=== PATIENT | male | born 1980 | race Caucasian/White ===

== ENCOUNTER 2023-10-01 23:45 | Emergency (ER) | payer SELFPAY ==
--- NOTE | 2023-10-02 00:06 | EDPHYS ---
Physician Documentation [facility] Name: Jeffrey Riley Age: 43 yrs Sex: Male : 1980 Arrival Date: 10/01/2023 Time: 23:45 Bed 12 Private MD: ED Physician Curtis Jennings HPI: 10/02 00:40 This 43 yrs old Male presents to ER via Unassigned with complaints of Allergic Reaction.kb 00:40 Patient is a 43-year-old male who presents for diffuse hives that started 3 days ago. kb States it has been continuing to spread. Reports itching. Denies fever.. Historical: - Allergies: 00:05 No Known Allergies; pf1 - PMHx: 00:05 None; pf1 - PSHx: 00:05 None; pf1 - Immunization history:: Adult Immunizations not up to date, Client reports having NOT received the Covid vaccine. Last tetanus immunization: > 10 years ago Flu vaccine is not up to date. - Social history:: Smoking status: Patient denies any tobacco usage or history of. Patient/guardian denies using alcohol, street drugs. ROS: 00:39 Constitutional: Negative for fever, chills, and weight loss, kb 00:39 Skin: Positive for rash, diffusely, 00:39 All other systems are negative, Exam: 00:39 Constitutional: This is a well developed, well nourished patient who is awake, alert, kb and in no acute distress. Head/Face: Normocephalic, atraumatic. ENT: Moist Mucous membranes Cardiovascular: Regular rate Respiratory: Respirations even and unlabored. No increased work of breathing. Talking in full sentences MS/ Extremity: Pulses equal, no cyanosis. Neurovascular intact. Full, normal range of motion. Neuro: Awake and alert, GCS 15, oriented to person, place, time, and situation. Moves all extremities. Normal gait. 00:39 Skin: consistent with urticaria, and is diffusely located, Vital Signs: 00:02 BP 131 / 84; Pulse 95; Resp 16; Temp 98.3; Pulse Ox 97% on R/A; Weight 126.1 kg; Height pf1 5 ft. 10 in. ; Pain 0/10; 00:02 Body Mass Index 39.89 (126.10 kg, 177.8 cm) pf1 00:02 Pain Scale: Adult pf1 MDM: 10/01 23:57 Patient medically screened. kb 10/02 00:40 Differential diagnosis: anaphylaxis, urticaria, cellulitis. Data reviewed: vital signs, kb nurses notes. Counseling: I had a detailed discussion with the patient and/or guardian regarding the historical points, exam findings, and any diagnostic results supporting the discharge/admit diagnosis, the need for outpatient follow up, a ultrasound manager, to return to the emergency department if symptoms worsen or persist or if there are any questions or concerns that arise at home. Administered Medications: 00:15 Drug: Dexamethasone IM 10 mg IM once Route: IM; Site: left ventrogluteal; pf1 00:29 Follow up: Response: No adverse reaction pf1 00:15 Drug: Famotidine PO 20 mg PO once Route: PO; pf1 00:29 Follow up: Response: No adverse reaction pf1 Disposition: 02:28 Co-signature as Attending Physician, Curtis Jennings MD I reviewed the patient's care rn provided by the Advanced Practice Provider and agree with the diagnosis and treatment plan. Disposition Summary: 10/02/23 00:05 Discharge Ordered Notes: Location: Home kb Condition: Stable kb Diagnosis - Urticaria, unspecified kb Followup: kb - With: Emergency Department - When: As needed - Reason: Worsening of condition Followup: kb - With: Private Physician - When: 2 - 3 days - Reason: Recheck today's complaints, Continuance of care, Re-evaluation by your physician Discharge Instructions: - Discharge Summary Sheet kb - Hives, [id number] kb Forms: - Medication Reconciliation Form kb - Thank You Letter kb - Antibiotic Education kb - Prescription Opioid Use kb - Patient Portal Instructions kb - Leadership Thank You Letter kb Prescriptions: - Cephalexin 500 mg Oral Capsule - take 1 capsule ORAL route every 8 hours for 10 days; 30 capsule; Refills: 0, kb Product Selection Permitted - Pepcid 20 mg Oral Tablet - take 1 tablet ORAL route every 12 hours for 5 days; 10 tablet; Refills: 0, kb Product Selection Permitted - Prednisone 20 mg Oral Tablet - take 2 tablets ORAL route once daily for 5 days; 10 tablet; Refills: 0, Product kb Selection Permitted Signatures: Esthela Tony, STACIEC BHAVANI-Ckb Jennings, Curtis, MD MD rn Davis, Liliane, RN RN pf1
[2023-10-02] MEDS ORDERED: dexAMETHasone 10 MG/ML VIAL ONE (00:25)
[2023-10-02] MEDS ORDERED: FAMOTIDINE 20 MG TAB ONE (00:25)
--- NOTE | 2023-10-02 00:49 | ER ---
Nurse's Notes [facility] Name: Jeffrey Riley Age: 43 yrs Sex: Male : 1980 Arrival Date: 10/01/2023 Time: 23:45 Bed 12 Private MD: Diagnosis: Urticaria, unspecified Presentation: 10/02 00:02 Chief complaint: Patient states: generalized hives with itching,onset 3 days. Patient pf1 denies any difficulty breathing. 00:02 Coronavirus screen: Vaccine status: Patient reports being unvaccinated. Client denies pf1 travel out of the [place] in the last 14 days. At this time, the client does not indicate any symptoms associated with coronavirus-19. Ebola Screen: Patient negative for fever greater than or equal to 101.5 degrees Fahrenheit, and additional compatible Ebola Virus Disease symptoms. Onset: The symptoms/episode began/occurred gradually, 3 day(s) ago. Anaphylaxis evaluation, no signs or symptoms of anaphylaxis were noted. Initial Sepsis Screen: Does the patient meet any 2 criteria? HR > 90 bpm. No. Patient's initial sepsis screen is negative. Does the patient have a suspected source of infection? No. Patient's initial sepsis screen is negative. Risk Assessment: Do you want to hurt yourself or someone else? Patient reports no desire to harm self or others. 00:02 Method Of Arrival: Ambulatory pf1 00:02 Acuity: EMERITA 5 pf1 Historical: - Allergies: 00:05 No Known Allergies; pf1 - PMHx: 00:05 None; pf1 - PSHx: 00:05 None; pf1 - Immunization history:: Adult Immunizations not up to date, Client reports having NOT received the Covid vaccine. Last tetanus immunization: > 10 years ago Flu vaccine is not up to date. - Social history:: Smoking status: Patient denies any tobacco usage or history of. Patient/guardian denies using alcohol, street drugs. Screenin:05 [facility] ED Fall Risk Assessment (Adult) History of falling in the last 3 months, pf1 including since admission No falls in past 3 months (0 pts) Confusion or Disorientation No (0 pts) Intoxicated or Sedated No (0 pts) Impaired Gait No (0 pts) Mobility Assist Device Used No (0 pt) Altered Elimination No (0 pt) Score/Fall Risk Level 0 - 2 = Low Risk Oriented to surroundings, Maintained a safe environment, Educated pt \T\ family on fall prevention, incl call for assistance when getting out of bed, Assessed \T\ reinforced patient's understanding of fall precautions, Provided non-skid footwear, Hourly rounding (assess needs \T\ fall precautionary measures) done, Used ambulatory aids as needed (educated on \T\ assisted with), Used gait belt as appropriate. 00:05 Abuse screen: Denies threats or abuse. Nutritional screening: No deficits noted. pf1 Tuberculosis screening: No symptoms or risk factors identified. Assessment: 00:05 General: Appears in no apparent distress. comfortable, well developed, Behavior is pf1 calm, cooperative, appropriate for age, quiet. 00:05 Pain: Denies pain. Neuro: No deficits noted. Level of Consciousness is awake, alert, pf1 obeys commands, Oriented to person, place, time, situation. Cardiovascular: No deficits noted. Capillary refill < 3 seconds Patient's skin is warm and dry. Respiratory: No deficits noted. Airway is patent Respiratory effort is even, unlabored, Respiratory pattern is regular, symmetrical, Breath sounds are clear bilaterally. GI: No deficits noted. No signs and/or symptoms were reported involving the gastrointestinal system. : No deficits noted. No signs and/or symptoms were reported regarding the genitourinary system. EENT: No deficits noted. No signs and/or symptoms were reported regarding the EENT system. Derm: Rash noted that is itchy, papular, red, raised, hives Reports generalized hives with itching. Vital Signs: 00:02 BP 131 / 84; Pulse 95; Resp 16; Temp 98.3; Pulse Ox 97% on R/A; Weight 126.1 kg; Height pf1 5 ft. 10 in. ; Pain 0/10; 00:02 Body Mass Index 39.89 (126.10 kg, 177.8 cm) pf1 00:02 Pain Scale: Adult pf1 ED Course: 10/01 23:50 Patient arrived in ED. gm2 23:57 Esthela [facility]C [facility] kb 23:57 Curtis Jennings MD is Attending Physician. kb 10/02 00:05 Patient has correct armband on for positive identification. Bed in low position. Call pf1 light in reach. 00:05 Arm band placed on right wrist. pf1 00:05 No provider procedures requiring assistance completed. Patient did not have IV access pf1 during this emergency room visit. 06:44 Triage completed. pf1 Administered Medications: 00:15 Drug: Dexamethasone IM 10 mg IM once Route: IM; Site: left ventrogluteal; pf1 00:29 Follow up: Response: No adverse reaction pf1 00:15 Drug: Famotidine PO 20 mg PO once Route: PO; pf1 00:29 Follow up: Response: No adverse reaction pf1 Medication: 00:05 VIS not applicable for this client. pf1 Outcome: 00:05 Discharge ordered by . kb 00:47 Discharged to home ambulatory, pf1 00:47 Condition: stable 00:47 Discharge instructions given to patient, Instructed on discharge instructions, follow up and referral plans. Demonstrated understanding of instructions, follow-up care, medications, Prescriptions given X 3, 00:48 Patient left the ED. pf1 Signatures: Esthela Tony FNP-C FNP-Liliane Walter RN RN pf1 Leigh Florentino 2
== END 2023-10-02 00:48 | disposition home or self-care (01) ==
LOC: ER 23:45
DX: L50.9 Urticaria, unspecified (principal)
CPT/HCPCS: 96372; 99284; J1100

== ENCOUNTER 2023-10-04 22:38 | Emergency (ER) | payer SELFPAY ==
--- OUTSIDE RECORDS SUMMARY | 2023-10-04 22:42 | XMS REPORT | Continuity of Care Document ---
:1980 Author Organization [facility] t Address [address] [place] [address] Care Team Providers Name Role Phone Annabel Attending Clinician Unavailable Makenzie Attending Clinician Unavailable Rosa M Ann Attending Clinician [phone] Annabel Admitting Clinician Unavailable Makenzie Admitting Clinician Unavailable Payers Payer Name Policy Type Policy Number Effective Date Expiration Date S tamiko AETNA [id number] 2019 00:00:00 [place] [id number] 2022 00[place]00 [place] Problems This patient has no known problems. Allergies, Adverse Reactions, Alerts This patient has no known allergies or adverse reactions. Social History Smoking Status Start Date Stop Date Source Never Smoker Ban [facility] Medications Ordered Filled Start Stop Current Ordering Indication Dosage Frequency Signature Comments Components Source Medication Medication Date Date Medication? Clinician (SIG) Name Name azithromyci azithromyci No azithromyc Ban n 250 mg n 250 mg in 250 mg Or thope tablet TAKE tablet TAKE tablet dic 2 TABLETS 2 TABLETS TAKE 2 Spo rts BY MOUTH BY MOUTH TABLETS BY M edicin TODAY, THEN TODAY, THEN MOUTH e TAKE 1 TAKE 1 TODAY, TABLET TABLET THEN TAKE DAILY FOR 4 DAILY FOR 4 1 TABLET DAYS DAYS DAILY FOR 4 DAYS ipratropium ipratropium No ipratropiu Ban bromide 42 bromide 42 m bromide [facility] mcg (0.06 mcg (0.06 42 mcg dic %) nasal %) nasal (0.06 %) Spo rts spray SPRAY spray SPRAY nasal Medicin 1 SPRAY 1 SPRAY spray e INTRANASALL INTRANASALL SPRAY 1 Y 3 TIMES A Y 3 TIMES A SPRAY DAY DAY INTRANASAL LY 3 TIMES A DAY meloxicam meloxicam No meloxicam Ban 15 mg 15 mg 15 mg [facility] tablet TAKE tablet TAKE tablet dic 1 TABLET BY 1 TABLET BY TAKE 1 Sports MOUTH DAILY MOUTH DAILY TABLET BY Medicin NEEDED NEEDED MOUTH e FOR MUSCLE FOR MUSCLE DAILY PAIN. PAIN. NEEDED FOR MUSCLE PAIN. methocarbam methocarbam No methocarba Ban ol 750 mg ol 750 mg mol 750 mg [facility] tablet TAKE tablet TAKE tablet dic 1 TABLET BY 1 TABLET BY TAKE 1 Sports MOUTH EVERY MOUTH EVERY TABLET BY Medicin 8 HOURS 8 HOURS MOUTH e NEEDED NEEDED EVERY 8 HOURS NEEDED methylpredn methylpredn No methylpred Ban isolone 4 isolone 4 nisolone 4 Orthope mg tablets mg tablets mg tablets dic in a dose in a dose in a dose Sports pack TAKE 6 pack TAKE 6 pack TAKE Medicin TABLETS ON TABLETS ON 6 TABLETS e DAY 1 DAY 1 ON DAY 1 DIRECTED ON DIRECTED ON PACKAGE AND PACKAGE AND DIRECTED DECREASE BY DECREASE BY ON PACKAGE 1 TAB EACH 1 TAB EACH AND DAY FOR A DAY FOR A DECREASE TOTAL OF 6 TOTAL OF 6 BY 1 TAB DAYS DAYS EACH DAY FOR A TOTAL OF 6 DAYS valacyclovi valacyclovi No valacyclov Ban r 1 gram r 1 gram ir 1 gram Or thope tablet TAKE tablet TAKE tablet dic 2 TABLETS 2 TABLETS TAKE 2 Spo rts BY MOUTH BY MOUTH TABLETS BY M edicin EVERY 12 EVERY 12 MOUTH e HOURS HOURS EVERY 12 HOURS zolpidem 5 zolpidem 5 No zolpidem 5 Ban mg tablet mg tablet mg tablet [facility] TAKE 1 TAKE 1 TAKE 1 dic TABLET BY TABLET BY TABLET BY Sports MOUTH MOUTH MOUTH Medicin NIGHTLY NIGHTLY NIGHTLY e NEEDED FOR NEEDED FOR NEEDED FOR SLEEP. SLEEP. SLEEP. INDICATIONS INDICATIONS INDICATION : : S: DIFFICULTY DIFFICULTY DIFFICULTY FALLING FALLING FALLING ASLEEP ASLEEP ASLEEP albuterol albuterol No albuterol Ban sulfate HFA sulfate HFA sulfate Orth[facility] 90 90 HFA 90 dic mcg/actuati mcg/actuati mcg/actuat Sports on aerosol on aerosol ion Med icin inhaler inhaler aerosol e INHALE 2 INHALE 2 inhaler PUFFS INTO PUFFS INTO INHALE 2 THE LUNGS THE LUNGS PUFFS INTO EVERY 4 EVERY 4 THE LUNGS HOURS HOURS EVERY 4 NEEDED FOR NEEDED FOR HOURS WHEEZE WHEEZE NEEDED FOR WHEEZE azithromyci azithromyci No azithromyc Ban n 250 mg n 250 mg in 250 mg Or thope tablet TAKE tablet TAKE tablet dic 2 TABLETS 2 TABLETS TAKE 2 Spo rts BY MOUTH BY MOUTH TABLETS BY Kevon cote TODAY, THEN TODAY, THEN MOUTH e TAKE 1 TAKE 1 TODAY, TABLET TABLET THEN TAKE DAILY FOR 4 DAILY FOR 4 1 TABLET DAYS DAYS DAILY FOR 4 DAYS ipratropium ipratropium No ipratropiu Ban bromide 42 bromide 42 m bromide [facility] mcg (0.06 mcg (0.06 42 mcg dic %) nasal %) nasal (0.06 %) Spo rts spray SPRAY spray SPRAY nasal Medicin 1 SPRAY 1 SPRAY spray e INTRANASALL INTRANASALL SPRAY 1 Y 3 TIMES A Y 3 TIMES A SPRAY DAY DAY INTRANASAL LY 3 TIMES A DAY meloxicam meloxicam No meloxicam Ban 15 mg 15 mg 15 mg [facility] tablet TAKE tablet TAKE tablet dic 1 TABLET BY 1 TABLET BY TAKE 1 Sports MOUTH DAILY MOUTH DAILY TABLET BY Medicin NEEDED NEEDED MOUTH e FOR MUSCLE FOR MUSCLE DAILY PAIN. PAIN. NEEDED FOR MUSCLE PAIN. methocarbam methocarbam No methocarba Ban ol 750 mg ol 750 mg mol 750 mg [facility] tablet TAKE tablet TAKE tablet dic 1 TABLET BY 1 TABLET BY TAKE 1 Sports MOUTH EVERY MOUTH EVERY TABLET BY Medicin 8 HOURS 8 HOURS MOUTH e NEEDED NEEDED EVERY 8 HOURS NEEDED methylpredn methylpredn No methylpred Ban isolone 4 isolone 4 nisolone 4 [facility] mg tablets mg tablets mg tablets dic in a dose in a dose in a dose Sports pack TAKE 6 pack TAKE 6 pack TAKE Medicin TABLETS ON TABLETS ON 6 TABLETS e DAY 1 DAY 1 ON DAY 1 DIRECTED ON DIRECTED ON PACKAGE AND PACKAGE AND DIRECTED DECREASE BY DECREASE BY ON PACKAGE 1 TAB EACH 1 TAB EACH AND DAY FOR A DAY FOR A DECREASE TOTAL OF 6 TOTAL OF 6 BY 1 TAB DAYS DAYS EACH DAY FOR A TOTAL OF 6 DAYS valacyclovi valacyclovi No valacyclov Ban r 1 gram r 1 gram ir 1 gram Or thope tablet TAKE tablet TAKE tablet dic 2 TABLETS 2 TABLETS TAKE 2 Spo rts BY MOUTH BY MOUTH TABLETS BY Kevon cote EVERY 12 EVERY 12 MOUTH e HOURS HOURS EVERY 12 HOURS zolpidem 5 zolpidem 5 No zolpidem 5 Ban mg tablet mg tablet mg tablet [facility] TAKE 1 TAKE 1 TAKE 1 dic TABLET BY TABLET BY TABLET BY Sports MOUTH MOUTH MOUTH Medicin NIGHTLY NIGHTLY NIGHTLY e NEEDED FOR NEEDED FOR NEEDED FOR SLEEP. SLEEP. SLEEP. INDICATIONS INDICATIONS INDICATION : : S: DIFFICULTY DIFFICULTY DIFFICULTY FALLING FALLING FALLING ASLEEP ASLEEP ASLEEP albuterol albuterol No albuterol Ban sulfate HFA sulfate HFA sulfate [facility] 90 90 HFA 90 dic mcg/actuati mcg/actuati mcg/actuat Sports on aerosol on aerosol ion Med icin inhaler inhaler aerosol e INHALE 2 INHALE 2 inhaler PUFFS INTO PUFFS INTO INHALE 2 THE LUNGS THE LUNGS PUFFS INTO EVERY 4 EVERY 4 THE LUNGS HOURS HOURS EVERY 4 NEEDED FOR NEEDED FOR HOURS WHEEZE WHEEZE NEEDED FOR WHEEZE azithromyci azithromyci No azithromyc Ban n 250 mg n 250 mg in 250 mg Or thope tablet TAKE tablet TAKE tablet dic 2 TABLETS 2 TABLETS TAKE 2 Spo rts BY MOUTH BY MOUTH TABLETS BY M edicin TODAY, THEN TODAY, THEN MOUTH e TAKE 1 TAKE 1 TODAY, TABLET TABLET THEN TAKE DAILY FOR 4 DAILY FOR 4 1 TABLET DAYS DAYS DAILY FOR 4 DAYS ciprofloxac ciprofloxac No ciprofloxa Ban in 500 mg in 500 mg abundio 500 mg [facility] tablet TAKE tablet TAKE tablet dic 1 TABLET BY 1 TABLET BY TAKE 1 Sports MOUTH TWICE MOUTH TWICE TABLET BY Medicin A DAY FOR 5 A DAY FOR 5 MOUTH e DAYS DAYS TWICE A DAY FOR 5 DAYS gabapentin gabapentin No gabapentin Ban 300 mg 300 mg 300 mg [facility] capsule capsule capsule dic TAKE 1 TO 2 TAKE 1 TO 2 TAKE 1 TO Sports CAPSULES BY CAPSULES BY 2 CAPSULES Medicin MOUTH EVERY MOUTH EVERY BY MOUTH e NIGHT AT NIGHT AT EVERY BEDTIME BEDTIME NIGHT AT BEDTIME ipratropium ipratropium No ipratropiu Ban bromide 42 bromide 42 m bromide [facility] mcg (0.06 mcg (0.06 42 mcg dic %) nasal %) nasal (0.06 %) Spo rts spray SPRAY spray SPRAY nasal Medicin 1 SPRAY 1 SPRAY spray e INTRANASALL INTRANASALL SPRAY 1 Y 3 TIMES A Y 3 TIMES A SPRAY DAY DAY INTRANASAL LY 3 TIMES A DAY meloxicam meloxicam No meloxicam Ban 15 mg 15 mg 15 mg [facility] tablet TAKE tablet TAKE tablet dic 1 TABLET BY 1 TABLET BY TAKE 1 Sports MOUTH DAILY MOUTH DAILY TABLET BY Medicin NEEDED NEEDED MOUTH e FOR MUSCLE FOR MUSCLE DAILY PAIN. PAIN. NEEDED FOR MUSCLE PAIN. methocarbam methocarbam No methocarba Ban ol 750 mg ol 750 mg mol 750 mg [facility] tablet TAKE tablet TAKE tablet dic 1 TABLET BY 1 TABLET BY TAKE 1 Sports MOUTH EVERY MOUTH EVERY TABLET BY Medicin 8 HOURS 8 HOURS MOUTH e NEEDED FOR NEEDED FOR EVERY 8 MUSCLE MUSCLE HOURS SPASMS SPASMS NEEDED FOR MUSCLE SPASMS methylpredn methylpredn No methylpred Ban isolone 4 isolone 4 nisolone 4 [facility] mg tablets mg tablets mg tablets dic in a dose in a dose in a dose Sports pack TAKE 6 pack TAKE 6 pack TAKE Medicin TABLETS ON TABLETS ON 6 TABLETS e DAY 1 DAY 1 ON DAY 1 DIRECTED ON DIRECTED ON PACKAGE AND PACKAGE AND DIRECTED DECREASE BY DECREASE BY ON PACKAGE 1 TAB EACH 1 TAB EACH AND DAY FOR A DAY FOR A DECREASE TOTAL OF 6 TOTAL OF 6 BY 1 TAB DAYS DAYS EACH DAY FOR A TOTAL OF 6 DAYS oxycodone-a oxycodone-a No oxycodone- Ban cetaminophe cetaminophe acetaminop [facility] n 5 mg-325 n 5 mg-325 hen 5 di c mg tablet mg tablet mg-325 mg Sports Take 1 Take 1 tablet Medicin tablet tablet Take 1 e every 6 every 6 tablet hours by hours by every 6 oral route. oral route. hours by oral route. valacyclovi valacyclovi No valacyclov Ban r 1 gram r 1 gram ir 1 gram Or thope tablet TAKE tablet TAKE tablet dic 2 TABLETS 2 TABLETS TAKE 2 Spo rts BY MOUTH BY MOUTH TABLETS BY M edicin EVERY 12 EVERY 12 MOUTH e HOURS HOURS EVERY 12 HOURS zolpidem 5 zolpidem 5 No zolpidem 5 Ban mg tablet mg tablet mg tablet [facility] TAKE 1 TAKE 1 TAKE 1 dic TABLET BY TABLET BY TABLET BY Sports MOUTH MOUTH MOUTH Medicin NIGHTLY NIGHTLY NIGHTLY e NEEDED FOR NEEDED FOR NEEDED FOR SLEEP. SLEEP. SLEEP. INDICATIONS INDICATIONS INDICATION : : S: DIFFICULTY DIFFICULTY DIFFICULTY FALLING FALLING FALLING ASLEEP ASLEEP ASLEEP albuterol albuterol No albuterol Ban sulfate HFA sulfate HFA sulfate [facility] 90 90 HFA 90 dic mcg/actuati mcg/actuati mcg/actuat Sports on aerosol on aerosol ion Med icin inhaler inhaler aerosol e INHALE 2 INHALE 2 inhaler PUFFS INTO PUFFS INTO INHALE 2 THE LUNGS THE LUNGS PUFFS INTO EVERY 4 EVERY 4 THE LUNGS HOURS HOURS EVERY 4 NEEDED FOR NEEDED FOR HOURS WHEEZE WHEEZE NEEDED FOR WHEEZE amoxicillin amoxicillin No amoxicilli Ban 875 mg 875 mg n 875 mg [facility] tablet TAKE tablet TAKE tablet dic 1 TAB(S) 1 TAB(S) TAKE 1 Sport s ORALLY 2 ORALLY 2 TAB(S) Medic in TIMES A DAY TIMES A DAY ORALLY 2 e TREAT FOR TREAT FOR TIMES A 10 DAYS 10 DAYS DAY TREAT FOR 10 DAYS azithromyci azithromyci No azithromyc Ban n 250 mg n 250 mg in 250 mg Or thope tablet TAKE tablet TAKE tablet dic 2 TABLETS 2 TABLETS TAKE 2 Spo rts BY MOUTH BY MOUTH TABLETS BY M edicin TODAY, THEN TODAY, THEN MOUTH e TAKE 1 TAKE 1 TODAY, TABLET TABLET THEN TAKE DAILY FOR 4 DAILY FOR 4 1 TABLET DAYS DAYS DAILY FOR 4 DAYS ciprofloxac ciprofloxac No ciprofloxa Ban in 500 mg in 500 mg abundio 500 mg [facility] tablet TAKE tablet TAKE tablet dic 1 TABLET BY 1 TABLET BY TAKE 1 Sports MOUTH TWICE MOUTH TWICE TABLET BY Medicin A DAY FOR 5 A DAY FOR 5 MOUTH e DAYS DAYS TWICE A DAY FOR 5 DAYS gabapentin gabapentin No gabapentin Ban 300 mg 300 mg 300 mg [facility] capsule capsule capsule dic TAKE 1 TO 2 TAKE 1 TO 2 TAKE 1 TO Sports CAPSULES BY CAPSULES BY 2 CAPSULES Medicin MOUTH EVERY MOUTH EVERY BY MOUTH e NIGHT AT NIGHT AT EVERY BEDTIME BEDTIME NIGHT AT BEDTIME ipratropium ipratropium No ipratropiu Ban bromide 42 bromide 42 m bromide [facility] mcg (0.06 mcg (0.06 42 mcg dic %) nasal %) nasal (0.06 %) Spo rts spray SPRAY spray SPRAY nasal Medicin 1 SPRAY 1 SPRAY spray e INTRANASALL INTRANASALL SPRAY 1 Y 3 TIMES A Y 3 TIMES A SPRAY DAY DAY INTRANASAL LY 3 TIMES A DAY meloxicam meloxicam No meloxicam Ban 15 mg 15 mg 15 mg [facility] tablet TAKE tablet TAKE tablet dic 1 TABLET BY 1 TABLET BY TAKE 1 Sports MOUTH DAILY MOUTH DAILY TABLET BY Medicin NEEDED NEEDED MOUTH e FOR MUSCLE FOR MUSCLE DAILY PAIN. PAIN. NEEDED FOR MUSCLE PAIN. methocarbam methocarbam No methocarba Ban ol 750 mg ol 750 mg mol 750 mg [facility] tablet TAKE tablet TAKE tablet dic 1 TABLET BY 1 TABLET BY TAKE 1 Sports MOUTH EVERY MOUTH EVERY TABLET BY Medicin 8 HOURS 8 HOURS MOUTH e NEEDED FOR NEEDED FOR EVERY 8 MUSCLE MUSCLE HOURS SPASMS SPASMS NEEDED FOR MUSCLE SPASMS methylpredn methylpredn No methylpred Ban isolone 4 isolone 4 nisolone 4 [facility] mg tablets mg tablets mg tablets dic in a dose in a dose in a dose Sports pack TAKE 6 pack TAKE 6 pack TAKE Medicin TABLETS ON TABLETS ON 6 TABLETS e DAY 1 DAY 1 ON DAY 1 DIRECTED ON DIRECTED ON PACKAGE AND PACKAGE AND DIRECTED DECREASE BY DECREASE BY ON PACKAGE 1 TAB EACH 1 TAB EACH AND DAY FOR A DAY FOR A DECREASE TOTAL OF 6 TOTAL OF 6 BY 1 TAB DAYS DAYS EACH DAY FOR A TOTAL OF 6 DAYS oxycodone-a oxycodone-a No oxycodone- Ban cetaminophe cetaminophe acetaminop [facility] n 5 mg-325 n 5 mg-325 hen 5 di c mg tablet mg tablet mg-325 mg Sports Take 1 Take 1 tablet Medicin tablet tablet Take 1 e every 6 every 6 tablet hours by hours by every 6 oral route. oral route. hours by oral route. valacyclovi valacyclovi No valacyclov Ban r 1 gram r 1 gram ir 1 gram Or thope tablet TAKE tablet TAKE tablet dic 2 TABLETS 2 TABLETS TAKE 2 Spo rts BY MOUTH BY MOUTH TABLETS BY M edicin EVERY 12 EVERY 12 MOUTH e HOURS HOURS EVERY 12 HOURS zolpidem 5 zolpidem 5 No zolpidem 5 Ban mg tablet mg tablet mg tablet [facility] TAKE 1 TAKE 1 TAKE 1 dic TABLET BY TABLET BY TABLET BY Sports MOUTH MOUTH MOUTH Medicin NIGHTLY NIGHTLY NIGHTLY e NEEDED FOR NEEDED FOR NEEDED FOR SLEEP. SLEEP. SLEEP. INDICATIONS INDICATIONS INDICATION : : S: DIFFICULTY DIFFICULTY DIFFICULTY FALLING FALLING FALLING ASLEEP ASLEEP ASLEEP albuterol albuterol No albuterol Ban sulfate HFA sulfate HFA sulfate [facility] 90 90 HFA 90 dic mcg/actuati mcg/actuati mcg/actuat Sports on aerosol on aerosol ion Med icin inhaler inhaler aerosol e INHALE 2 INHALE 2 inhaler PUFFS INTO PUFFS INTO INHALE 2 THE LUNGS THE LUNGS PUFFS INTO EVERY 4 EVERY 4 THE LUNGS HOURS HOURS EVERY 4 NEEDED FOR NEEDED FOR HOURS WHEEZE WHEEZE NEEDED FOR WHEEZE amoxicillin amoxicillin No amoxicilli Ban 875 mg 875 mg n 875 mg [facility] tablet TAKE tablet TAKE tablet dic 1 TAB(S) 1 TAB(S) TAKE 1 Sport s ORALLY 2 ORALLY 2 TAB(S) Medic in TIMES A DAY TIMES A DAY ORALLY 2 e TREAT FOR TREAT FOR TIMES A 10 DAYS 10 DAYS DAY TREAT FOR 10 DAYS azithromyci azithromyci No azithromyc Ban n 250 mg n 250 mg in 250 mg Or thope tablet TAKE tablet TAKE tablet dic 2 TABLETS 2 TABLETS TAKE 2 Spo rts BY MOUTH BY MOUTH TABLETS BY Kevon cote TODAY, THEN TODAY, THEN MOUTH e TAKE 1 TAKE 1 TODAY, TABLET TABLET THEN TAKE DAILY FOR 4 DAILY FOR 4 1 TABLET DAYS DAYS DAILY FOR 4 DAYS ciprofloxac ciprofloxac No ciprofloxa Ban in 500 mg in 500 mg abundio 500 mg [facility] tablet TAKE tablet TAKE tablet dic 1 TABLET BY 1 TABLET BY TAKE 1 Sports MOUTH TWICE MOUTH TWICE TABLET BY Medicin A DAY FOR 5 A DAY FOR 5 MOUTH e DAYS DAYS TWICE A DAY FOR 5 DAYS gabapentin gabapentin No gabapentin Ban 300 mg 300 mg 300 mg [facility] capsule capsule capsule dic TAKE 1 TO 2 TAKE 1 TO 2 TAKE 1 TO Sports CAPSULES BY CAPSULES BY 2 CAPSULES Medicin MOUTH EVERY MOUTH EVERY BY MOUTH e NIGHT AT NIGHT AT EVERY BEDTIME BEDTIME NIGHT AT BEDTIME ipratropium ipratropium No ipratropiu Ban bromide 42 bromide 42 m bromide [facility] mcg (0.06 mcg (0.06 42 mcg dic %) nasal %) nasal (0.06 %) Spo rts spray SPRAY spray SPRAY nasal Medicin 1 SPRAY 1 SPRAY spray e INTRANASALL INTRANASALL SPRAY 1 Y 3 TIMES A Y 3 TIMES A SPRAY DAY DAY INTRANASAL LY 3 TIMES A DAY meloxicam meloxicam No meloxicam Ban 15 mg 15 mg 15 mg [facility] tablet TAKE tablet TAKE tablet dic 1 TABLET BY 1 TABLET BY TAKE 1 Sports MOUTH DAILY MOUTH DAILY TABLET BY Medicin NEEDED NEEDED MOUTH e FOR MUSCLE FOR MUSCLE DAILY PAIN. PAIN. NEEDED FOR MUSCLE PAIN. methocarbam methocarbam No methocarba Ban ol 750 mg ol 750 mg mol 750 mg [facility] tablet TAKE tablet TAKE tablet dic 1 TABLET BY 1 TABLET BY TAKE 1 Sports MOUTH EVERY MOUTH EVERY TABLET BY Medicin 8 HOURS 8 HOURS MOUTH e NEEDED FOR NEEDED FOR EVERY 8 MUSCLE MUSCLE HOURS SPASMS SPASMS NEEDED FOR MUSCLE SPASMS methylpredn methylpredn No methylpred Ban isolone 4 isolone 4 nisolone 4 [facility] mg tablets mg tablets mg tablets dic in a dose in a dose in a dose Sports pack TAKE 6 pack TAKE 6 pack TAKE Medicin TABLETS ON TABLETS ON 6 TABLETS e DAY 1 DAY 1 ON DAY 1 DIRECTED ON DIRECTED ON PACKAGE AND PACKAGE AND DIRECTED DECREASE BY DECREASE BY ON PACKAGE 1 TAB EACH 1 TAB EACH AND DAY FOR A DAY FOR A DECREASE TOTAL OF 6 TOTAL OF 6 BY 1 TAB DAYS DAYS EACH DAY FOR A TOTAL OF 6 DAYS oxycodone-a oxycodone-a No oxycodone- Ban cetaminophe cetaminophe acetaminop [facility] n 5 mg-325 n 5 mg-325 hen 5 di c mg tablet mg tablet mg-325 mg Sports Take 1 Take 1 tablet Medicin tablet tablet Take 1 e every 6 every 6 tablet hours by hours by every 6 oral route. oral route. hours by oral route. valacyclovi valacyclovi No valacyclov Ban r 1 gram r 1 gram ir 1 gram Or thope tablet TAKE tablet TAKE tablet dic 2 TABLETS 2 TABLETS TAKE 2 Spo rts BY MOUTH BY MOUTH TABLETS BY M edicin EVERY 12 EVERY 12 MOUTH e HOURS HOURS EVERY 12 HOURS zolpidem 5 zolpidem 5 No zolpidem 5 Ban mg tablet mg tablet mg tablet [facility] TAKE 1 TAKE 1 TAKE 1 dic TABLET BY TABLET BY TABLET BY Sports MOUTH MOUTH MOUTH Medicin NIGHTLY NIGHTLY NIGHTLY e NEEDED FOR NEEDED FOR NEEDED FOR SLEEP. SLEEP. SLEEP. INDICATIONS INDICATIONS INDICATION : : S: DIFFICULTY DIFFICULTY DIFFICULTY FALLING FALLING FALLING ASLEEP ASLEEP ASLEEP albuterol albuterol No albuterol Ban sulfate HFA sulfate HFA sulfate [facility] 90 90 HFA 90 dic mcg/actuati mcg/actuati mcg/actuat Sports on aerosol on aerosol ion Med icin inhaler inhaler aerosol e INHALE 2 INHALE 2 inhaler PUFFS INTO PUFFS INTO INHALE 2 THE LUNGS THE LUNGS PUFFS INTO EVERY 4 EVERY 4 THE LUNGS HOURS HOURS EVERY 4 NEEDED FOR NEEDED FOR HOURS WHEEZE WHEEZE NEEDED FOR WHEEZE azithromyci azithromyci No azithromyc Ban n 250 mg n 250 mg in 250 mg Or thope tablet TAKE tablet TAKE tablet dic 2 TABLETS 2 TABLETS TAKE 2 Spo rts BY MOUTH BY MOUTH TABLETS BY Kevon cote TODAY, THEN TODAY, THEN MOUTH e TAKE 1 TAKE 1 TODAY, TABLET TABLET THEN TAKE DAILY FOR 4 DAILY FOR 4 1 TABLET DAYS DAYS DAILY FOR 4 DAYS ipratropium ipratropium No ipratropiu Ban bromide 42 bromide 42 m bromide [facility] mcg (0.06 mcg (0.06 42 mcg dic %) nasal %) nasal (0.06 %) Spo rts spray SPRAY spray SPRAY nasal Medicin 1 SPRAY 1 SPRAY spray e INTRANASALL INTRANASALL SPRAY 1 Y 3 TIMES A Y 3 TIMES A SPRAY DAY DAY INTRANASAL LY 3 TIMES A DAY meloxicam meloxicam No meloxicam Ban 15 mg 15 mg 15 mg [facility] tablet TAKE tablet TAKE tablet dic 1 TABLET BY 1 TABLET BY TAKE 1 Sports MOUTH DAILY MOUTH DAILY TABLET BY Medicin NEEDED NEEDED MOUTH e FOR MUSCLE FOR MUSCLE DAILY PAIN. PAIN. NEEDED FOR MUSCLE PAIN. methocarbam methocarbam No methocarba Ban ol 750 mg ol 750 mg mol 750 mg [facility] tablet TAKE tablet TAKE tablet dic 1 TABLET BY 1 TABLET BY TAKE 1 Sports MOUTH EVERY MOUTH EVERY TABLET BY Medicin 8 HOURS 8 HOURS MOUTH e NEEDED NEEDED EVERY 8 HOURS NEEDED methylpredn methylpredn No methylpred Ban isolone 4 isolone 4 nisolone 4 [facility] mg tablets mg tablets mg tablets dic in a dose in a dose in a dose Sports pack TAKE 6 pack TAKE 6 pack TAKE Medicin TABLETS ON TABLETS ON 6 TABLETS e DAY 1 DAY 1 ON DAY 1 DIRECTED ON DIRECTED ON PACKAGE AND PACKAGE AND DIRECTED DECREASE BY DECREASE BY ON PACKAGE 1 TAB EACH 1 TAB EACH AND DAY FOR A DAY FOR A DECREASE TOTAL OF 6 TOTAL OF 6 BY 1 TAB DAYS DAYS EACH DAY FOR A TOTAL OF 6 DAYS valacyclovi valacyclovi No valacyclov Ban r 1 gram r 1 gram ir 1 gram Or thope tablet TAKE tablet TAKE tablet dic 2 TABLETS 2 TABLETS TAKE 2 Spo rts BY MOUTH BY MOUTH TABLETS BY Kevon cote EVERY 12 EVERY 12 MOUTH e HOURS HOURS EVERY 12 HOURS zolpidem 5 zolpidem 5 No zolpidem 5 Ban mg tablet mg tablet mg tablet [facility] TAKE 1 TAKE 1 TAKE 1 dic TABLET BY TABLET BY TABLET BY Sports MOUTH MOUTH MOUTH Medicin NIGHTLY NIGHTLY NIGHTLY e NEEDED FOR NEEDED FOR NEEDED FOR SLEEP. SLEEP. SLEEP. INDICATIONS INDICATIONS INDICATION : : S: DIFFICULTY DIFFICULTY DIFFICULTY FALLING FALLING FALLING ASLEEP ASLEEP ASLEEP albuterol albuterol No albuterol Ban sulfate HFA sulfate HFA sulfate [facility] 90 90 HFA 90 dic mcg/actuati mcg/actuati mcg/actuat Sports on aerosol on aerosol ion Med icin inhaler inhaler aerosol e INHALE 2 INHALE 2 inhaler PUFFS INTO PUFFS INTO INHALE 2 THE LUNGS THE LUNGS PUFFS INTO EVERY 4 EVERY 4 THE LUNGS HOURS HOURS EVERY 4 NEEDED FOR NEEDED FOR HOURS WHEEZE WHEEZE NEEDED FOR WHEEZE Vital Signs Vital Name Observation Time Observation Value Comments Source Height 2023-01-20 00:00:00 68 [in_i] [facility] BMI (Body Mass 2023-01-20 00:00:00 31 kg/m2 [facility] Body Weight 2023-01-20 00:00:00 204 [lb_av] [facility] BMI (Body Mass 2022-12-16 00:00:00 31 kg/m2 [facility]) [facility] Body Weight 2022-12-16 00:00:00 204 [lb_av] [facility] Height 2022-12-16 00:00:00 68 [in_i] [facility] Height 2022-08-05 00:00:00 68 [in_i] [facility] BMI (Body Mass 2022-08-05 00:00:00 31 kg/m2 [facility] Index) [facility] Body Weight 2022-08-05 00:00:00 204 [lb_av] [facility] Height 2022-06-26 00:00:00 68 [in_i] [facility] BMI (Body Mass 2022-06-26 00:00:00 31 kg/m2 [facility] Index) [facility] Body Weight 2022-06-26 00:00:00 204 [lb_av] [facility] Height 2022-05-15 00:00:00 68 [in_i] [facility] BMI (Body Mass 2022-05-15 00:00:00 31.2 kg/m2 [facility] Index) [facility] Body Weight 2022-05-15 00:00:00 205 [lb_av] [facility] Procedures Procedure Date / Time Performing Clinician Source Performed Orthopaedic Surgery - 2022-12-01 00:00:00 [facility] Other (Surg) Sports Medicine XR, shoulder, 2 or more 2022-05-15 00:00:00 Thaddeus krishnan [facility] ENT/Sinus Surgery [facility] Shoulder Surgery [facility] Encounters Start End Encounter Admission Attending Care Care Encounter Source Date/Time Date/Time Type Type Clinicians Facility Department ID 2023-06-23 2023-06-23 Outpatient [facility] [id number] Ban 00:00:00 00:00:00 _Yrn [id number] [facility] 2023-04-17 2023-04-17 Outpatient [facility] [id number] Ban 00:00:00 00:00:00 _Yrn [id number] [facility] 2023-03-24 2023-03-24 Outpatient CC_John [facility] A[facility] [id number] Ban 00:00:00 00:00:00 _Yrn [id number] [facility] 2023-02-20 2023-02-20 Outpatient [facility] A[facility] [id number] Ban 00:00:00 00:00:00 _Yrn [id number] [facility] 2023-02-02 2023-02-02 Outpatient Billy_Kevon [facility] [address] [place] [address] 00:00:00 00:00:00 [id number] [facility] 2023-01-20 2023-01-20 Eber Z [facility] [place] - Ortho [id number] Ban 00:00:00 00:00:00 Deb Lopez MD: [id number] [facility] [address] [place] [facility], [facility] [place] [address] , Ph. 2023-01-13 2023-01-13 Outpatient CC_John A[facility]M AOSM [id number] Ban 00:00:00 00:00:00 _Yrn [id number] [facility] e 2023-01-13 2023-01-13 Outpatient CC_John A[facility] AOSM [id number] Ban 00:00:00 00:00:00 _Yrn [id number] Orth [facility] dic Sports Medicin e 2022-12-16 2022-12-16 Rosa M [facility] [place] - Ortho [id number] Ban 00:00:00 00:00:00 DEREK Ann: Deb Wolf [id number] [facility] [place] [employer] [facility], [facility] [place] [address] , Ph. [phone] 2022-11-26 2022-11-26 Outpatient CC_John AOSM AOSM [id number] Ban 00:00:00 00:00:00 _Yrn [id number] Orth [facility] dic Sports Medicin e 2022-11-26 2022-11-26 Outpatient CC_John A[facility] AOSM [id number] Ban 00:00:00 00:00:00 _Yrn [id number] Orth ope dic Sports Medicin e 2022-11-26 2022-11-26 Outpatient CC_John AOSM AOSM [id number] Ban 00:00:00 00:00:00 _Yrn [id number] Orth ope dic Sports Medicin e 2022-11-26 2022-11-26 Outpatient CC_Mercedesmerrill A[facility]M AOSM 405 [id number] Ban 00:00:00 00:00:00 _Yrn [id number] Orth ope dic Sports Medicin e 2022-11-25 2022-11-25 Outpatient CC_[facility] A[facility] AOS[facility] 405 [id number] Ban 00:00:00 00:00:00 _Yrn [id number] Orth ope dic Sports Medicin e 2022-08-05 2022-08-05 Outpatient CC_[facility] A[facility] AOS[facility] 405 [id number] Ban 00:00:00 00:00:00 _Yrn [id number] Orth ope dic Sports Medicin e 2022-08-05 2022-08-05 Rosa M AOSM [place] - [place] [id number] Ban 00:00:00 00:00:00 Seth PA: [facility] [address] [facility] [address], [place] [address] , Ph. 68 2022-06-26 2022-06-26 Outpatient [facility]_[place] AOSM AOSM [id number] Ban 00:00:00 00:00:00 _Yrn [id number] Orth ope [facility] 2022-06-26 2022-06-26 Outpatient Seth, AOSM AOSM [id number] 00:00:00 00:00:00 Rosa M [id number] 2022-06-26 2022-06-26 [place] M AOSM [place] - [place] [id number] Ban 00:00:00 00:00:00 Seth PA: [facility] [address] [facility], [facility] [address], [place] [address] , Ph. [phone] 2022-06-16 Outpatient [facility]_[place] AOSM AOSM [id number] Ban 00:00:00 00:00:00 _Yrn [id number] Orth ope [facility] 2022-05-15 2022-05-15 Outpatient [facility]_[place] AOSM AOSM [id number] Ban 11:11:00 11:11:00 _Yrn [id number] Orth ope [facility] 2022-05-15 2022-05-15 Outpatient Seth, AOSM AOSM [id number] 00:00:00 00:00:00 Rosa M [id number] 2022-05-15 2022-05-15 Rosa M AOSM [place] - [place] [id number] Ban 00:00:00 00:00:00 DEREK Ann: [facility] - [facility] [address] [facility], [facility] [address], [place] [address] , Ph. 2022-05-14 2022-05-14 Outpatient CC_[place] AOSM AOSM [id number] Ban 10:42:00 10:42:00 _rYn [id number] Orth ope dic [facility] 2022-05-02 2022-05-02 Outpatient CC_[place] AOSM AOSM [id number] Ban 09:40:00 09:40:00 _Yrn [id number] Orth ope dic [facility] 2022-05-02 2022-05-02 Outpatient [facility] AOSM AOSM [id number] Ban 09:40:00 09:40:00 _Yrn [id number] Orth ope dic [facility] 2020-04-20 2020-04-20 Outpatient AOSM AOSM [id number] Ban 07:44:00 07:44:00 [id number] Orthop e dic [facility] e Results This patient has no known results.
[2023-10-04 23:52] LABS: Absolute Lymphocytes (CBC) 2.3 K/uL (0.7-4.9); Hematocrit 38.1 % (39.6-49.0); Lymphocytes % 15.8 % (15.3-44.8); MCV 88.2 fL (80-100); MPV 6.9 fL (7.6-11.3); Platelets 403 thou/uL (152-406); RBC Red Blood Cell Count 4.32 M/uL (4.33-5.43)
[2023-10-05] LABS: Specific Gravity > 1.030 (1.005-1.030); Urine Bacteria <20 /HPF (<20); Urine Bilirubin NEGATIVE (Negative); Urine Blood Negative (Negative); Urine Clarity Clear (Clear); Urine Color Light-Yellow (Yellow); Urine Glucose NEGATIVE (Negative); Urine Mucus Slight /HPF (None Seen); Urine Protein TRACE (Negative); Urine RBC <5 /HPF (None Seen); Urine Urobilinogen Normal (Normal)
[2023-10-05 00:15] LABS: Albumin 3.1 g/dL (3.4-5.0); Bilirubin Direct 0.1 mg/dL (0-0.2); Bilirubin Indirect, Calculated 0.4 mg/dL (0.2-0.8); Bilirubin Total 0.5 mg/dL (0.2-1.0); Magnesium 2.4 mg/dL (1.6-2.4); Potassium 3.7 mEq/L (3.5-5.1); Protein, Total 7.2 g/dL (6.4-8.2); Troponin High Sensitivity 7.3 pg/mL (<58.9)
[2023-10-05 00:29] LABS: SARS-COV-2 RT PCR NEGATIVE (NEGATIVE)
[2023-10-05] MEDS ORDERED: METHYLPREDNISOLONE 125 MG INJ ONE (00:58)
[2023-10-05] MEDS ORDERED: DIPHENHYDRAMINE 50 MG/ML VIAL ONE (00:58)
[2023-10-05] MEDS ORDERED: FAMOTIDINE 20 MG/2 ML VIAL IV ONE (00:58)
--- NOTE | 2023-10-05 02:14 | ER ---
Nurse's Notes [facility] Name: Jeffrey Riley Age: 43 yrs Sex: Male : 1980 Arrival Date: 10/04/2023 Time: 22:38 Bed 15 Private MD: Diagnosis: Allergy status to unspecified drugs, medicaments and biological substances status Presentation: 10/04 22:44 Chief complaint: Patient states: bilateral hand and feet redness, swelling with pf1 tingling sensation with pain of 3,onset yesterday. Patient stated does not know if he is having an allergic reaction to medications that he started on Thursday: Pepcid, Cephalexin and Prednisone. Coronavirus screen: Vaccine status: Patient reports being unvaccinated. Client denies travel out of the [place] in the last 14 days. At this time, the client does not indicate any symptoms associated with coronavirus-19. Ebola Screen: Patient negative for fever greater than or equal to 101.5 degrees Fahrenheit, and additional compatible Ebola Virus Disease symptoms. Initial Sepsis Screen: Does the patient meet any 2 criteria? No. Patient's initial sepsis screen is negative. Does the patient have a suspected source of infection? No. Patient's initial sepsis screen is negative. Risk Assessment: Do you want to hurt yourself or someone else? Patient reports no desire to harm self or others. 22:44 Method Of Arrival: Ambulatory pf1 22:44 Acuity: EMERITA 3 pf1 23:50 Onset of symptoms was October 01, 2023. km8 Historical: - Allergies: 22:51 No Known Allergies; pf1 - PMHx: 22:51 None; pf1 - PSHx: 22:51 None; pf1 - Immunization history:: Adult Immunizations not up to date, Client reports having NOT received the Covid vaccine. Last tetanus immunization: > 10 years ago Flu vaccine is not up to date. - Social history:: Smoking status: Patient denies any tobacco usage or history of. Patient/guardian denies using alcohol, street drugs. Screenin:50 [facility] ED Fall Risk Assessment (Adult) History of falling in the last 3 months, km8 including since admission No falls in past 3 months (0 pts) Confusion or Disorientation No (0 pts) Intoxicated or Sedated No (0 pts) Impaired Gait No (0 pts) Mobility Assist Device Used No (0 pt) Altered Elimination No (0 pt) Score/Fall Risk Level 0 - 2 = Low Risk Oriented to surroundings, Maintained a safe environment, Educated pt \T\ family on fall prevention, incl call for assistance when getting out of bed, Assessed \T\ reinforced patient's understanding of fall precautions. Abuse screen: Denies threats or abuse. Denies injuries from another. Nutritional screening: No deficits noted. Tuberculosis screening: No symptoms or risk factors identified. Assessment: 23:50 General: Appears in no apparent distress. comfortable, Behavior is calm, cooperative, km8 appropriate for age. Pain: Complains of pain in right hand, left hand, right foot and left foot. Neuro: Jacobo Agitation-Sedation Scale (RASS): 0 - Alert and Calm Level of Consciousness is awake, alert, obeys commands, Oriented to person, place, time, situation. Cardiovascular: Denies chest pain, Capillary refill < 3 seconds Patient's skin is warm and dry. Respiratory: Airway is patent Respiratory effort is even, unlabored. GI: No signs and/or symptoms were reported involving the gastrointestinal system. : No signs and/or symptoms were reported regarding the genitourinary system. EENT: No signs and/or symptoms were reported regarding the EENT system. Derm: Skin is intact, is healthy with good turgor, Skin is dry, Skin is pink, warm \T\ dry. normal, Skin temperature is warm Reports burning, tingling, in bilateral hands and feet. Musculoskeletal: No signs and/or symptoms reported regarding the musculoskeletal system. Range of motion: intact in all extremities. 10/05 01:02 Reassessment: Patient appears in no apparent distress at this time. No changes from km8 previously documented assessment. Patient and/or family updated on plan of care and expected duration. Pain level reassessed. Patient is alert, oriented x 3, equal unlabored respirations, skin warm/dry/pink. 02:08 Reassessment: Patient appears in no apparent distress at this time. Patient and/or km8 family updated on plan of care and expected duration. Pain level reassessed. Patient is alert, oriented x 3, equal unlabored respirations, skin warm/dry/pink. Patient states symptoms have improved. Vital Signs: 10/04 22:44 BP 142 / 79; Pulse 85; Resp 16; Temp 98.5; Pulse Ox 97% on R/A; Weight 127.01 kg; pf1 Height 5 ft. 10 in. ; Pain 3/10; 10/05 00:03 BP 123 / 66; Pulse 87; Resp 14; Pulse Ox 98% on R/A; km8 01:00 BP 120 / 75; Pulse 83; Resp 16; Pulse Ox 97% on R/A; km8 01:30 BP 115 / 76; Pulse 83; Resp 16; Pulse Ox 97% on R/A; km8 02:00 BP 130 / 77; Pulse 82; Resp 16; Pulse Ox 96% on R/A; km8 10/04 22:44 Body Mass Index 40.18 (127.01 kg, 177.8 cm) pf1 10/04 22:44 Pain Scale: Adult pf1 [place] Coma Score: 10/04 23:50 Eye Response: spontaneous(4). Motor Response: obeys commands(6). Verbal Response: km8 oriented(5). Total: 15. ED Course: 22:40 Patient arrived in ED. ag3 22:51 Triage completed. pf1 22:54 Trever Greenfield PA is PHCP. cp 22:54 Adolfo Ramírez MD is Attending Physician. cp 23:30 Urinalysis W/Microscopic Sent. pf1 23:30 COVID-19/FLU A+B/RSV Sent. pf1 23:30 Basic Metabolic Panel Sent. pf1 23:30 CBC with Diff Sent. pf1 23:30 LFT's Sent. pf1 23:30 Magnesium Sent. pf1 23:30 NT PRO-BNP Sent. pf1 23:30 Troponin HS Sent. pf1 23:31 Inserted saline lock: 22 gauge in right antecubital area, using aseptic technique. pf1 Blood collected. 23:40 XRAY Chest (1 view) In Process Unspecified. EDMS 23:50 Patient maintains SpO2 saturation greater than 95% on room air. km8 23:50 Patient has correct armband on for positive identification. Bed in low position. Call km8 light in reach. Side rails up X 1. Client placed on continuous cardiac and pulse oximetry monitoring. NIBP monitoring applied. awake overnight monitor on. Door closed. Lights dimmed. 23:50 Arm band placed on right wrist. km8 11/27 00:12 Addy, Amaris, RN is Primary Nurse. km8 02:08 No provider procedures requiring assistance completed. km8 02:26 Provided Education on: d/c teaching. km8 02:27 IV discontinued, intact, bleeding controlled, No redness/swelling at site. Pressure km8 dressing applied. Administered Medications: 01:01 Drug: MethylPrednisoLONE IVP 125 mg IVP once Route: IVP; Site: right antecubital; km8 02:00 Follow up: Response: No adverse reaction; Marked relief of symptoms km8 01:01 Drug: diphenhydrAMINE IVP 50 mg IVP once Route: IVP; Site: right antecubital; km8 02:00 Follow up: Response: No adverse reaction; Marked relief of symptoms km8 01:01 Drug: Famotidine IVP 20 mg IVP once; dilute with 10 mL 0.9% NaCl; give over 2 minutes km8 Route: IVP; Site: right antecubital; 02:00 Follow up: Response: No adverse reaction km8 Medication: 02:08 VIS not applicable for this client. km8 Outcome: 02:14 Discharge ordered by . randall 02:27 Discharged to home ambulatory, with significant other, km8 02:27 Condition: good 02:27 Discharge instructions given to patient, Instructed on discharge instructions, follow up and referral plans. medication usage, Demonstrated understanding of instructions, follow-up care, medications, Prescriptions given X 3, 02:28 Patient left the ED. km8 Signatures: Dispatcher [employer] EDMS Trever Greenfield PA PA cp Gomez, Alice ag3 Liliane Davis RN RN pf1 Amaris Daly, RN RN km8 Corrections: (The following items were deleted from the chart) 10/04 23:14 22:44 Acuity: EMERITA 4 pf1 pf1
--- NOTE | 2023-10-05 02:14 | EDPHYS ---
Physician Documentation [facility] Name: Jeffrey Riley Age: 43 yrs Sex: Male : 1980 Arrival Date: 10/04/2023 Time: 22:38 Bed 15 Private MD: ED Physician Adolfo Ramírez HPI: 10/04 23:15 This 43 yrs old Male presents to ER via Ambulatory with complaints of Hand Swelling. cp 23:15 The patient or guardian reports a rash, erythematous, swelling, tenderness. The cp complaints affect the right hand and left hand. 23:15 Associated signs and symptoms: Pertinent positives: fever, body aches, generalized cp itching. 23:15 Patient is a 43-year-old male who returns to the emergency department after being seen cp 3 days ago for rash that he attributed to being possibly bitten by bedbugs and fleas at home. Patient reports he was prescribed cephalexin, prednisone and Pepcid. Patient reports that starting the medications he felt like his rash got worse and now today he is having swelling, pain, redness and itching to hands. Patient reports after being given the steroids at the previous visit he felt like his symptoms did improve. Patient reports feeling feverish, chills and bodyaches today. He has an cinder crane operator going to his home tomorrow to treat the fleas and bedbug infestation. Historical: - Allergies: 22:51 No Known Allergies; pf1 - PMHx: 22:51 None; pf1 - PSHx: 22:51 None; pf1 - Immunization history:: Adult Immunizations not up to date, Client reports having NOT received the Covid vaccine. Last tetanus immunization: > 10 years ago Flu vaccine is not up to date. - Social history:: Smoking status: Patient denies any tobacco usage or history of. Patient/guardian denies using alcohol, street drugs. ROS: 23:20 Constitutional: Positive for body aches, chills, fever, cp 23:20 ENT: Negative for drainage from ear(s), ear pain, sore throat, difficulty swallowing, cp difficulty handling secretions, 23:20 Skin: Positive for rash, of the face, back, chest, abdomen, right hand, left hand, right foot and left foot, 23:20 Neuro: Negative for altered mental status, headache, numbness, weakness, Exam: 23:25 Constitutional: The patient appears in no acute distress, alert, awake, cp non-diaphoretic, non-toxic, well developed, well nourished, anxious, 23:25 Head/face: Noted is rash, that is erythematous, cp 23:25 Eyes: Periorbital structures: appear normal, Pupils: equal, round, and reactive to light and accomodation, Extraocular movements: intact throughout, Conjunctiva: normal, no exudate, no injection, Sclera: no appreciated abnormality, Lids and lashes: appear normal, bilaterally, 23:25 ENT: External ear(s): are unremarkable, Nose: is normal, Mouth: Lips: dry, Oral mucosa: pink and intact, moist, Tongue: is normal, Posterior pharynx: Airway: no evidence of obstruction, patent, swelling, is not appreciated, erythema, is not appreciated, exudate, is not appreciated, 23:25 Neck: ROM/movement: is normal, is supple, without pain, no range of motions limitations, no meningismus, 23:25 Chest/axilla: Palpation: is normal, no crepitus, no tenderness, 23:25 Cardiovascular: Rate: normal, Rhythm: regular, 23:25 Respiratory: the patient does not display signs of respiratory distress, Respirations: normal, no use of accessory muscles, no retractions, labored breathing, is not present, Breath sounds: are clear throughout, no decreased breath sounds, no stridor, no wheezing, 23:25 Abdomen/GI: Inspection: obese Palpation: abdomen is soft and non-tender, in all quadrants, 23:25 Musculoskeletal/extremity: Extremities: noted in the right hand and left hand: erythema, swelling, tenderness, 23:25 Skin: rash can be described as erythematous, urticarial, hives, and is diffusely located, 23:53 ECG was reviewed by the Attending Physician. cp Vital Signs: 22:44 BP 142 / 79; Pulse 85; Resp 16; Temp 98.5; Pulse Ox 97% on R/A; Weight 127.01 kg; pf1 Height 5 ft. 10 in. ; Pain 3/10; 10/05 00:03 BP 123 / 66; Pulse 87; Resp 14; Pulse Ox 98% on R/A; km8 01:00 BP 120 / 75; Pulse 83; Resp 16; Pulse Ox 97% on R/A; km8 01:30 BP 115 / 76; Pulse 83; Resp 16; Pulse Ox 97% on R/A; km8 02:00 BP 130 / 77; Pulse 82; Resp 16; Pulse Ox 96% on R/A; km8 10/04 22:44 Body Mass Index 40.18 (127.01 kg, 177.8 cm) pf1 10/04 22:44 Pain Scale: Adult pf1 [place] Coma Score: 10/04 23:50 Eye Response: spontaneous(4). Motor Response: obeys commands(6). Verbal Response: km8 oriented(5). Total: 15. MDM: 22:54 Patient medically screened. cp 10/05 00:00 Differential diagnosis: allergic reaction, anaphylaxis, sepsis. cp 02:13 Data reviewed: vital signs, nurses notes, lab test result(s), EKG, radiologic studies, cp plain films. 02:13 Consideration of Admission/Observation Escalation of care including cp admission/observation considered. I considered the following discharge prescriptions or medication management in the emergency department Medications were administered in the Emergency Department. See MAR. Independent interpretation of the following test(s) in the Emergency Department EKG: See my EKG interpretation above. Care significantly affected by the following chronic conditions: Obesity. Counseling: I had a detailed discussion with the patient and/or guardian regarding the historical points, exam findings, and any diagnostic results supporting the discharge/admit diagnosis, lab results, radiology results, the need for outpatient follow up, a family practitioner, to return to the emergency department if symptoms worsen or persist or if there are any questions or concerns that arise at home. Response to treatment: the patient's symptoms have mildly improved after treatment, and as a result, I will discharge patient. 10/04 23:11 Order name: Basic Metabolic Panel; Complete Time: 00:21 cp 10/05 00:22 Interpretation: Normal except: GLUC 115; BUN 22. cp 10/04 23:11 Order name: CBC with Diff; Complete Time: 00:21 cp 10/05 00:22 Interpretation: Normal except: WBC 14.60; RBC 4.32; HGB 12.8; HCT 38.1; MPV 6.9; ROSANNE% cp 80.2; MN% 3.1; NEUT A 11.7. 10/04 23:11 Order name: LFT's; Complete Time: 00:21 cp 10/05 00:22 Interpretation: Normal except: AST 13; ALB 3.1; GLOB 4.1; A/G 0.8. cp 10/04 23:11 Order name: Magnesium; Complete Time: 00:21 cp 10/04 23:11 Order name: NT PRO-BNP; Complete Time: 00:21 cp 10/05 00:22 Interpretation: Abnormal: NT PRO-BNP 544. cp 10/04 23:11 Order name: Troponin HS; Complete Time: 00:21 cp 10/04 23:11 Order name: COVID-19/FLU A+B/RSV; Complete Time: 00:39 cp 10/04 23:11 Order name: Urinalysis W/Microscopic; Complete Time: 00:21 cp 10/05 00:23 Interpretation: Normal except: Urine SG > 1.030; UPROT TRACE. cp 10/04 23:11 Order name: XRAY Chest (1 view) cp 10/04 23:11 Order name: EKG; Complete Time: 23:12 cp 10/04 23:11 Order name: Cardiac monitoring; Complete Time: 23:59 cp 10/04 23:11 Order name: EKG - Nurse/Tech; Complete Time: 23:59 cp 10/04 23:11 Order name: IV Saline Lock; Complete Time: 23:31 cp 10/04 23:11 Order name: Labs collected and sent; Complete Time: 23:31 cp 10/04 23:11 Order name: O2 Per Protocol; Complete Time: 23:59 cp 10/04 23:11 Order name: O2 Sat Monitoring; Complete Time: 23:59 cp EC/26 23:53 Rate is 88 beats/min. Rhythm is regular. MD interval is normal. QRS interval is normal. cp QT interval is normal. T waves are Inverted in lead aVR. Interpreted by me. Reviewed by me. Administered Medications: 10/05 01:01 Drug: MethylPrednisoLONE IVP 125 mg IVP once Route: IVP; Site: right antecubital; 02:00 Follow up: Response: No adverse reaction; Marked relief of symptoms 01:01 Drug: diphenhydrAMINE IVP 50 mg IVP once Route: IVP; Site: right antecubital; 8 02:00 Follow up: Response: No adverse reaction; Marked relief of symptoms 01:01 Drug: Famotidine IVP 20 mg IVP once; dilute with 10 mL 0.9% NaCl; give over 2 minutes km8 Route: IVP; Site: right antecubital; 02:00 Follow up: Response: No adverse reaction km8 Disposition Summary: 10/05/23 02:14 Discharge Ordered Notes: Location: Home cp Problem: an ongoing problem cp Symptoms: have improved cp Condition: Stable cp Diagnosis - Allergy status to unspecified drugs, medicaments and biological substances status cp Followup: cp - With: Private Physician - When: 2 - 3 days - Reason: Recheck today's complaints Discharge Instructions: - Discharge Summary Sheet cp - Allergies, Adult cp - Allergy Skin Testing cp Forms: - Medication Reconciliation Form cp - Thank You Letter cp - Antibiotic Education cp - Prescription Opioid Use cp - Patient Portal Instructions cp - Leadership Thank You Letter cp Prescriptions: - Pepcid 20 mg Oral Tablet - take 1 tablet ORAL route every 12 hours for 10 days; 20 tablet; Refills: 0, cp Product Selection Permitted - Prednisone 20 mg Oral tablet - take 3 tablets ORAL route once daily for 5 days then take 2 tablets daily for 2 cp days and then 1 tablet daily for 2 days and then 1/2 tablet for 1 day; 15 tablet; Refills: 0, Product Selection Permitted - Zyrtec 10 mg Oral Tablet - take 1 tablet ORAL route once daily As needed; 20 tablet; Refills: 0, Product cp Selection Permitted Addendum: 10/07/2023 12:39 Co-signature as Attending Physician, Adolfo Ramírez MD I agree with the assessment s p4 and plan of care. I reviewed the patient's care provided by the Advanced Practice Provider and agree with the diagnosis and treatment plan. Signatures: Dispatcher [employer] EDCA Trever Greenfield PA PA cp Liliane Davis RN RN pf1 Adolfo Ramírez MD MD sp4 Amaris Daly RN RN km8
[2023-10-05 03:04] VITALS: TEMP 98.5
[2023-10-05 03:10] VITALS: BP 130/77; O2SAT 96
--- NOTE | 2023-10-05 14:04 | RAD REPORT ---
EXAM DESCRIPTION: Chest Single View CLINICAL HISTORY: 43 years Male hand/feet swelling COMPARISON: None TECHNIQUE: AP view of the chest was obtained. FINDINGS: Cardiac silhouette is enlarged. Central vessels are moderately increased. No effusions bilaterally. No abnormal airspace opacity is seen. No pneumothorax. IMPRESSION: Enlarged heart with moderate central congestion. No infiltrates seen. Electronically signed by: Charlien Morales MD 10/04/2023 11:45 PM OFFICE CHAIR ASSEMBLER Due to temporary technical issues with the PACS/Fluency reporting system, reports are being signed by the in house radiologist without review as a courtesy to ensure prompt reporting. The interpreting r adiologist is fully responsible for the content of the report.
--- NOTE | 2023-10-08 15:30 | EKG ---
Test Date: 2023-10-04 Test Time: 23:46:51 Lawyer: KLEBER MEASUREMENT RESULTS: Intervals: Rate: 88 GA: 144 QRSD: 98 QT: 378 QTc: 457 [place]: P: 46 GA: 144 QRS: 81 T: 47 INTERPRETIVE STATEMENTS: Normal sinus rhythm Normal ECG Compared to ECG 10/04/2023 23:45:29 No significant changes Electronically Signed On 10-08-23 15:16:45 DIAMOND DIE POLISHER by Fermin Agarwal
--- NOTE | 2023-10-08 15:30 | EKG ---
Test Date: 2023-10-04 Test Time: 23:45:29 Call Center Support Representative: KLEBER MEASUREMENT RESULTS: Intervals: Rate: 86 WA: 144 QRSD: 98 QT: 372 QTc: 445 [place]: P: 53 WA: 144 QRS: 79 T: 49 INTERPRETIVE STATEMENTS: Normal sinus rhythm Normal ECG Compared to ECG 04/30/2007 09:27:49 No significant changes Electronically Signed On 10-08-23 15:16:46 SHOE TURNER by Fermin Agarwal
== END 2023-10-05 02:28 | disposition home or self-care (01) ==
LOC: ER 22:38
DX: M79.89 Other specified soft tissue disorders (principal); T50.995A Adverse effect of other drugs, medicaments and biological substances, initial encounter; Z11.52 Encounter for screening for COVID-19
CPT/HCPCS: 0241U; 36415; 71045; 80048; 80076; 81001; 83735; 83880; 84484; 85025; 93005; 96374; 96375; 99285; J1200; J2930